=== PATIENT | female | born 1980 | race Caucasian/White ===

== ENCOUNTER 2018-11-29 11:51 | Emergency (ER) | payer SELFPAY ==
[2018-11-29 12:10] VITALS: BP 122/85; PULSE 96; TEMP 98.6; BMI 27.6
--- NOTE | 2018-11-29 12:39 | PDOC ---
History of Present Illness - General Chief Complaint: Ear Problem Stated Complaint: RT EAR PAIN/ FEVER Time Seen by Provider: 11/29/18 12:10 History Source: Patient Exam Limitations: Language Barrier ( translates, refuses [employer]) Past History - Travel Traveled outside of the country in the last 30 days: No Close contact w/someone who was outside of country & ill: No - Past Medical History Allergies/Adverse Reactions: Allergies Allergy/AdvReac Type Severity Reaction Status Date / Time No Known Allergies Allergy Verified 11/29/18 12:10 Home Medications: Ambulatory Orders Amoxicillin - [Amoxicillin 500mg Capsule -] 500 mg PO BID #14 capsule 11/29/18 Neomycin/Polymyxn/Hc [Cortisporin Otic Solution -] 5 drop AD Q6HPO #1 bottle - Suicide/Smoking/Psychosocial Hx Smoking History: Never smoked Have you smoked in the past 12 months: No Information on smoking cessation initiated: No Hx Alcohol Use: No Drug/Substance Use Hx: No Review of Systems - Review of Systems Able to Perform ROS?: Yes Comments:: 11/29/18 12:31 CONSTITUTIONAL: Absent: fever, chills, diaphoresis, generalized weakness, malaise, loss of appetite HEENT: Present: R ear pain, hearing changes Absent: rhinorrhea, nasal congestion, throat pain, throat swelling, difficulty swallowing, mouth swelling, eye pain, visual Changes CARDIOVASCULAR: Absent: chest pain, loss of consciousness, palpitations, irregular heart rate, peripheral edema RESPIRATORY: Absent: cough, shortness of breath, dyspnea with exertion, orthopnea, wheezing, stridor, hemoptysis MUSCULOSKELETAL: Absent: myalgia, arthralgia, joint swelling SKIN: Absent: rash, itching, pallor NEUROLOGIC: Absent: headache, focal weakness or paresthesias, dizziness, unsteady gait, seizure, mental status changes, bladder or bowel incontinence Is the patient limited Afghan proficient: No *Physical Exam - Vital Signs Last Vital Signs Temp Pulse Resp BP Pulse Ox 98.6 F 96 H 18 122/85 98 11/29/18 12:07 11/29/18 12:07 11/29/18 12:07 11/29/18 12:07 11/29/18 12:07 - Physical Exam Comments: 11/29/18 12:32 GENERAL: The patient is awake, alert, and fully oriented, in no acute distress. HEAD: Normal with no signs of trauma. EYES: Pupils equal, round and reactive to light, extraocular movements intact, sclera anicteric, conjunctiva clear. EARS: R ear canal is edematous with otorrhea. unable to visualize the TM. L ear canal is clear, TM pearly sosa in color, good cone of light, no bulging. EXTREMITIES: Normal range of motion, no edema. NEUROLOGICAL: Normal speech, normal gait. PSYCH: Normal mood, normal affect. SKIN: Warm, Dry, normal turgor, no rashes or lesions noted. Medical Decision Making - Medical Decision Making 11/29/18 12:46 The patient is a 38-year-old female who presents to the emergency department today with right ear pain for the last 4 days. She states she has tried over- the-counter eardrops with little relief of her symptoms. She states that it is hard to hear and she feels like everything is far away. denies fevers, chills, lightheadedness, dizziness, sore throat. A/P: Otitis externa The right ear canal appears erythematous with significant otorrhea. Unable to visualize the right TM. We will treat as otitis externa. Patient states she is currently having a miscarriage, medication will not interfere. Discharge home with ENT follow-up. I discussed the physical exam findings, ancillary test results and final diagnoses with the patient. I answered all of the patient's questions. The patient was satisfied with the care received and felt comfortable with the discharge plan and treatment plan. The Patient agrees to follow up with the primary care physician/specialist within 24-72 hours. Return precautions were given. *DC/Admit/Observation/Transfer Diagnosis at time of Disposition: Otitis externa Qualifiers: Otitis externa type: unspecified type Chronicity: acute Laterality: right Qualified Code(s): H60.501 - Unspecified acute noninfective otitis externa, right ear - Discharge Dispostion Disposition: HOME Condition at time of disposition: Stable Decision to Admit order: No - Prescriptions Prescriptions: Amoxicillin - [Amoxicillin 500mg Capsule -] 500 mg PO BID #14 capsule Neomycin/Polymyxn/Hc [Cortisporin Otic Solution -] 5 drop AD Q6HPO #1 bottle - Referrals Referrals: Darnell Haider MD [Staff Physician] - - Patient Instructions Printed Discharge Instructions: DI for Otitis Externa Additional Instructions: you have otitis externa or infection of the ear canal. Please use the eardrops as directed. Take the amoxicillin twice a day for 1 week. Take this with yogurt. Avoid putting anything in the ear keep it dry when showering. Follow-up with ENT if your symptoms should persist. A referral has been provided for you. Return to the ER for any new or worsening symptoms. Department of social worker psychiatric: [facility] Address: [address], [place] [address] - Post Discharge Activity
== END 2018-11-29 12:47 | disposition home or self-care (01) ==
LOC: JERFT 11:51
DX: H60.501 Unspecified acute noninfective otitis externa, right ear (principal)
CPT/HCPCS: 99281-25

== ENCOUNTER 2020-04-14 14:30 | Inpatient (IN) | payer BC ==
[2020-04-14 15:01] VITALS: BMI 33.3
[2020-04-14 16:35] LABS: BASO % 0.4 % (0-2.0); EOS % 0.8 % (0-4.5); HEMATOCRIT 35.9 % (32.4-45.2); HEMOGLOBIN 12.2 GM/dL (10.7-15.3); LYMPH % 21.7 % (8-40); MCH 27.7 pg (25.7-33.7); MCHC 33.9 g/dl (32.0-36.0); MEAN CELL VOLUME 81.5 fl (80-96); MEAN PLT VOLUME 8.5 fl (7.5-11.1); MONO % 8.9 % (3.8-10.2); NEUT % 68.2 % (42.8-82.8); PLATELET COUNT 243 K/MM3 (134-434); RBC 4.41 M/mm3 (3.60-5.2); RDW 14.5 % (11.6-15.6); WHITE BLOOD COUNT 6.9 K/mm3 (4.0-10.0)
[2020-04-14 16:47] LABS: INR 0.85 (0.83-1.09)
[2020-04-14 16:49] LABS: ACTIVATED PTT 22.6 SECONDS (25.2-36.5)
[2020-04-14 17:02] LABS: CALCIUM 9.2 mg/dL (8.5-10.1); CREATININE 0.5 mg/dL (0.55-1.3); POTASSIUM 4.6 mmol/L (3.5-5.1)
[2020-04-14] MEDS ORDERED: ELECTROLYTE-148 SOLN 1,000 ML IV SCH (17:15)
[2020-04-14] MEDS ORDERED: OXYTOCIN 20 UNITS in 0.9% NS 20 UNIT/1,000 ML INFUS.BAG IV ONE (17:20)
--- NOTE | 2020-04-14 17:29 | HP ---
Past Medical History - Primary Care Physician PCP:: Isiah Adams - Admission Chief Complaint: 40 yo @ 38.3 wks c/o decreased FM and pain on/off. 4 cm, 80% History of Present Illness: 40 yo @ 38.3 weeks AMA GDM on diet well controlled Obesity LGA Bilateral clinodactyly and echogenic foci - NIPS : low risk, declined amniocentesis H/O SABX 1 Last sono 04/06/2020 - 86 % 3691 gm, BPD >97%, AC 94%; grade 3 placenta History Source: Patient Limitations to Obtaining History: No Limitations - Past Medical History ...: 2 ...Para: 0 ...Spon : 1 ...LMP: 07/20/19 ... Weeks Gestation by Dates: 38.4 ...EDC by Dates: 04/25/20 ...EDC by Sono: 04/25/20 - Past Surgical History Past Surgical History: Yes: None Hx Myomectomy: No Hx Transabdominal Cerclage: No - Smoking History Smoking history: Never smoked Have you smoked in the past 12 months: No - Alcohol/Substance Use Hx Alcohol Use: No History of Substance Use: reports: None - Social History Usual Living Arrangement: Yes: With Spouse Do you think of yourself as: Straight/Heterosexual ADL: Independent History of Recent Travel: No Home Medications - Allergies Allergies/Adverse Reactions: Allergies Allergy/AdvReac Type Severity Reaction Status Date / Time No Known Allergies Allergy Verified 11/29/18 12:10 - Home Medications Home Medications: Ambulatory Orders Amoxicillin - [Amoxicillin 500mg Capsule -] 500 mg PO BID #14 capsule 11/29/18 Neomycin/Polymyxn/Hc [Cortisporin Otic Solution -] 5 drop AD Q6HPO #1 bottle 11/29/18 Family Medical History Family Hx Gastrointestinal Disorder: Father Review of Systems - Review of Systems Constitutional: reports: No Symptoms Eyes: reports: No Symptoms HENT: reports: No Symptoms Neck: reports: No Symptoms Cardiovascular: reports: No Symptoms Respiratory: reports: No Symptoms Gastrointestinal: reports: No Symptoms Genitourinary: reports: No Symptoms, Pain Breasts: reports: No Symptoms Reported Musculoskeletal: reports: No Symptoms Integumentary: reports: No Symptoms Neurological: reports: No Symptoms Endocrine: reports: No Symptoms Hematology/Lymphatic: reports: No Symptoms Psychiatric: reports: No Symptoms Physical Exam - Maternity Constitutional: Yes: Well Nourished, No Distress Eyes: Yes: WNL HENT: Yes: WNL Neck: Yes: WNL Cardiovascular: Yes: WNL Lungs: Clear to auscultation Breast(s): Yes: WNL - Abdominal Exam/OB Fundal Height: 42 Number of Fetuses: Single Presentation: Vertex Contractions: Yes Regularity: Irregular Intensity: Mild Monitor Mode: External Heart Rate [facility] Category: I Accelerations: Uniform Decelerations: None - Vaginal Exam/OB Vaginal Bleeding: No Dilatation (cm): 4 Effacement (%): 80 Amniotic Membrane Status: Intact Presentation: Vertex/Position Station: -1 - Physical Exam Musculoskeletal: Yes: WNL Extremities: Yes: WNL Edema: LLE: 2+, RLE: 2+ Deep Tendon Reflex Grade: Normal +2 Psychiatric: Yes: WNL - Labs Lab Results: CBC, BMP 04/14/20 15:30 04/14/20 15:30 Hemorrhage Risk Assessment - Risk Factors Risk Score: 2 Risk Level: High Risk Problem List - Problems (1) Gestational diabetes mellitus (GDM) in childbirth, diet controlled Code(s): O24.420 - GESTATIONAL DIABETES MELLITUS IN CHILDBIRTH, DIET CONTROLLED (2) 38 weeks gestation of Code(s): Z3A.38 - 38 WEEKS GESTATION OF (3) AMA (advanced maternal age) multigravida 35+ Code(s): O09.529 - SUPERVISION OF ELDERLY MULTIGRAVIDA, UNSPECIFIED TRIMESTER (4) Obesity Code(s): E66.9 - OBESITY, UNSPECIFIED Assessment/Plan Admit to LD Pitocin augmentation LISA
[2020-04-14] MEDS ORDERED: OXYTOCIN 30 UNITS in 0.9% NS 30 UNIT/500 ML INFUS.BAG IVPB SCH (17:30)
--- OUTSIDE RECORDS SUMMARY | 2020-04-14 20:45 | XMS ---
:1980 Author Organization [facility] Care Team Providers Name Role Phone MD Isiah Loomis Unavailable Unavailable Re-disclosure Warning The records that you are about to access may contain information from federally- assisted alcohol or drug abuse programs. If such information is present, then the following federally mandated warning applies: This information has been disclosed to you from records protected by federal confidentiality rules (42 CFR part 2). The federal rules prohibit you from making any further disclosure of this information unless further disclosure is expressly permitted by the written consent of the person to whom it pertains or as otherwise permitted by 42 CFR part 2. A general authorization for the release of medical or other information is NOT sufficient for this purpose. The Federal rules restrict any use of the information to criminally investigate or prosecute any alcohol or drug abuse patient.The records that you are about to access may contain highly sensitive health information, the redisclosure of which is protected by Article 27-F of the [facility] Public Health law. If you continue you may haveaccess to information: Regarding HIV / AIDS; Provided by facilities licensed or operated by the [facility] Office of Mental Health; or Provided by the [facility] Office for People With Developmental Disabilities. If such information is present, then the following [facility] mandated warning applies: This information has been disclosed to you from confidential records which are protected by state law. State law prohibits you from making any further disclosure of this information without the specific written consent of the person to whom it pertains, or as otherwise permitted by law. Any unauthorized further disclosure in violation of state law may result in a fine or retirement sentence or both. A general authorization for the release of medical or other information is NOT sufficient authorization for further disclosure. Encounters Encounter Providers Location Date Indications Data Source(s ) Outpatient Attender: ICU[facility] 04/05/2020 [facility] 04[facility]05[facility] 11:59:00 PM EDT Patient discharged. Outpatient Attender: MD Joyce ICU-[facility]TE PAR 04/02/2020 11:58:05 [facility] AM EDT - 04/06/2020 [facility] 11:59:00 PM EDT Patient discharged. Outpatient Attender: MD Joyce [facility] 03/24/2020 03:21:00 [facility] [place] PM EDT - 03/24/2020 [facility] 11:59:00 PM EDT Patient discharged. Outpatient Attender: MD Joyce [facility] 03/17/2020 11:28:00 [facility] [place] PM EDT - 03/17/2020 [facility] 11:59:00 PM EDT Patient discharged. Outpatient Attender: MD Joyce [facility] 03/10/2020 10:41:00 [facility] [place] AM EDT - 03/10/2020 [facility] 11:59:00 PM EDT Patient discharged. Outpatient Attender: MD Joyce [facility] 03/03/2020 03:25:00 [facility] [place] PM EDT - 03/03/2020 [facility] 11:59:00 PM EDT Patient discharged. Outpatient Attender: MD Joyce ICU-ANTE PAR 02/26/2020 09:22:29 [facility] AM EDT - 02/29/2020 [facility] 11:59:00 PM EDT Patient discharged. Outpatient Attender: MD Joyce [facility] 02/24/2020 07:52:00 [facility] [place] AM EDT - 02/24/2020 [facility] 11:59:00 PM EDT Patient discharged. Outpatient Attender: MD Joyce [facility] 02/18/2020 04:20:00 [facility] [place] PM EDT - 02/18/2020 [facility] 11:59:00 PM EDT Patient discharged. Outpatient Attender: MD Joyce ICU-ANTE PAR 12/18/2019 02:08:39 [facility] PM EDT - 12/21/2019 [facility] 11:59:00 PM EDT Patient discharged. Outpatient Attender: MD Joyce ICU-MATTRI 12/10/2019 09:31:00 [facility] AM EDT - 12/10/2019 [facility] 11:59:00 PM EDT Patient discharged. Outpatient Attender: MD Joyce ICU-ANTE PAR 10/16/2019 01:30:00 [facility] PM EDT - 10/16/2019 [facility] 11:59:00 PM EDT Patient discharged. Outpatient Attender: MD Joyce ICU-[facility]TE PAR 10/15/2019 03:36:00 [facility] PM EDT - 10/15/2019 [facility] 11:59:00 PM EDT Admission cancelled. Disregard status an d admitted date. Insurance Providers Payer name Policy type Policy ID Covered Covered republican's Policy P geri / Coverage republican ID relationship to Garcia Inf ormation type garcia OUT OF [id number] STATE 10 PPO [id number] Blue Cross Blue Cross [id number] PPO 10 Blue Cross Blue Cross [id number] PPO 10 SELF PAY SP INSURANCE Problems, Conditions, and Diagnoses Code Display Name Description Problem Type Effective Data Dates Source(s) O09.523 Supervision of Encounter for Diagnosis 04/06/2020 [facility] - N ew elderly supervision of 08:04:00 AM [facility] multigravida, multigravida of EDT Hospit al third trimester advanced maternal age in third trimester, antepartum O99.213 Obesity Maternal morbid Diagnosis 04/06/2020 S - New complicating obesity in third 08:04:00 AM Psychiatric , third trimester, EDT Hospital trimester antepartum O35.8XX0 Maternal care for Abnormal Diagnosis 04/06/2020 S - New other (suspected) echocardiogram 08:04:00 AM [place] abnormality affecting EDT Hospita l and damage, not antepartum care of applicable or mother, not unspecified applicable or unspecified fet O36.0110 Maternal care for Anti-D antibodies Diagnosis 04/06/2020 [facility] - 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:04:00 AM [facility] antibodies, first in first EDT Hospital trimester, not trimester, not applicable or applicable or unspecified unspecified fetus O24.410 Gestational Diet controlled Diagnosis 04/05/2020 [facility] - [facility] w diabetes mellitus gestational 03:49:00 PM [place] in , diet diabetes mellitus EDT Hospital controlled (GDM) 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 [facility] - New malformations of 09:28:00 [facility] O36.93X0 Maternal care for and placental Diagnosis 0 [facility] - New problem, problem affecting 09:28:00 AM [place] unspecified, third management of EDT Hos pital trimester, not mother in third applicable or trimester unspecified Z3A.22 22 weeks gestation 22 weeks gestation Diagnosis 0 [facility] - New of of 01:27:00 PM [facility] O09.522 Supervision of Encounter for Diagnosis 12/10/2019 [facility] - N ew elderly supervision of 09:31:00 AM [facility] multigravida, multigravida of EDT Hospit al second trimester advanced maternal age in second trimester, antepartum O99.212 Obesity Maternal morbid Diagnosis 12/10/2019 [facility] - New complicating obesity in second 09:31:00 AM Yobany suazo , second trimester, EDT Hospita l trimester antepartum O09.521 Supervision of Encounter for Diagnosis 10/16/2019 [facility] - N ew elderly supervision of 01:30:00 PM [facility] multigravida, multigravida of EDT Hospit al first trimester advanced maternal age in first trimester, antepartum O99.211 Obesity Maternal morbid Diagnosis 10/16/2019 [facility] - New complicating obesity in first 01:30:00 PM [place] , first trimester, EDT Hospital trimester antepartum
--- NOTE | 2020-04-14 22:09 | PN ---
Progress Note (short form) - Note Progress Note: Pt is comfortable VSS, afebrile FS 78 EFM 130 bpm, reactive, cat 1 TOCO Irreg UC VE -4-5 cm, 80%, -1 vtx. AROM - clear fluid IFM applied A/P pain meds discussed Pitocin augmentation Problem List - Problems (1) Gestational diabetes mellitus (GDM) in childbirth, diet controlled Code(s): O24.420 - GESTATIONAL DIABETES MELLITUS IN CHILDBIRTH, DIET CONTROLLED (2) 38 weeks gestation of Code(s): Z3A.38 - 38 WEEKS GESTATION OF (3) AMA (advanced maternal age) multigravida 35+ Code(s): O09.529 - SUPERVISION OF ELDERLY MULTIGRAVIDA, UNSPECIFIED TRIMESTER (4) Obesity Code(s): E66.9 - OBESITY, UNSPECIFIED
--- NOTE | 2020-04-14 23:06 | PN ---
Progress Note (short form) - Note Progress Note: Pt c/o painful UC and requesting epidural VSS, afebrile FS 78 IFM 130 bpm, reactive, cat 1 TOCO reg UC q 3 min VE -5 cm, 90%, -1 vtx. leaking clear fluid A/P Epidural anesthesia Pitocin augmentation Close observation Problem List - Problems (1) Gestational diabetes mellitus (GDM) in childbirth, diet controlled Code(s): O24.420 - GESTATIONAL DIABETES MELLITUS IN CHILDBIRTH, DIET CONTROLLED (2) 38 weeks gestation of Code(s): Z3A.38 - 38 WEEKS GESTATION OF (3) AMA (advanced maternal age) multigravida 35+ Code(s): O09.529 - SUPERVISION OF ELDERLY MULTIGRAVIDA, UNSPECIFIED TRIMESTER (4) Obesity Code(s): E66.9 - OBESITY, UNSPECIFIED
[2020-04-14] MEDS ORDERED: FENTANYL/BUPIVACAINE/NS/PF - PCEA - 50 ML DISP.SYRIN EP ONE (23:08)
[2020-04-14] MEDS ORDERED: PCA PUMP NR ONE (23:09)
[2020-04-14] MEDS ORDERED: FENTANYL/BUPIVACAINE/NS/PF - PCEA - 50 ML DISP.SYRIN EP SCH (23:45)
[2020-04-14] MEDS ORDERED: NALOXONE HCL 0.4 MG/ML VIAL IVPUSH PRN (23:46)
--- NOTE | 2020-04-15 01:07 | PN ---
Progress Note (short form) - Note Progress Note: Pt has no c/o after epidural VSS, afebrile FS 78 IFM 130 bpm, reactive, cat 1 TOCO reg UC q 3 min VE -8 cm, 90%, [address] st vtx. leaking clear fluid A/P Pitocin augmentation Close observation Problem List - Problems (1) Gestational diabetes mellitus (GDM) in childbirth, diet controlled Code(s): O24.420 - GESTATIONAL DIABETES MELLITUS IN CHILDBIRTH, DIET CONTROLLED (2) 38 weeks gestation of Code(s): Z3A.38 - 38 WEEKS GESTATION OF (3) AMA (advanced maternal age) multigravida 35+ Code(s): O09.529 - SUPERVISION OF ELDERLY MULTIGRAVIDA, UNSPECIFIED TRIMESTER (4) Obesity Code(s): E66.9 - OBESITY, UNSPECIFIED
[2020-04-15] MEDS ORDERED: DEXTROSE 5%-LACTATED RINGERS 1,000 ML IV SCH (01:15)
[2020-04-15] MEDS ORDERED: LIDOCAINE HCL 1% PRESERVATIVE FREE - 30ML VIAL ONE (01:44)
[2020-04-15] MEDS ORDERED: OXYTOCIN 20 UNITS in 0.9% NS 20 UNIT/1,000 ML INFUS.BAG IV ONE ×2 (01:44→06:26)
--- NOTE | 2020-04-15 03:05 | PN ---
Progress Note (short form) - Note Progress Note: Pt c/o pelvic pressure VSS, afebrile FS 78 IFM 130 bpm, reactive, cat 1 TOCO reg UC q 2 min VE 10 cm, 90%, 0 st vtx. A/P Close observation May push Problem List - Problems (1) Gestational diabetes mellitus (GDM) in childbirth, diet controlled Code(s): O24.420 - GESTATIONAL DIABETES MELLITUS IN CHILDBIRTH, DIET CONTROLLED (2) 38 weeks gestation of Code(s): Z3A.38 - 38 WEEKS GESTATION OF (3) AMA (advanced maternal age) multigravida 35+ Code(s): O09.529 - SUPERVISION OF ELDERLY MULTIGRAVIDA, UNSPECIFIED TRIMESTER (4) Obesity Code(s): E66.9 - OBESITY, UNSPECIFIED
[2020-04-15] MEDS ORDERED: OXYTOCIN 30 UNITS in 0.9% NS 30 UNIT/500 ML INFUS.BAG IVPB ONE (04:35)
[2020-04-15] MEDS ORDERED: PCA PUMP NR ONE (04:52)
[2020-04-15] MEDS ORDERED: LIDO 2%/EPI 1:200000 PRESRVFRE (20 ML SDVIAL) ONE (05:04)
[2020-04-15] MEDS ORDERED: EPHEDRINE SULFATE/0.9% NACL/PF 50 MG/10 ML SYRINGE NR ONE (05:28)
[2020-04-15] MEDS ORDERED: PROPOFOL 20 ML ONE (05:28)
[2020-04-15] MEDS ORDERED: SUCCINYLCHOLINE CHLORIDE 200 MG/10 ML SYRINGE ONE (05:29)
[2020-04-15] MEDS ORDERED: morphine SULFATE/PF 0.5 MG/ML (2cc Syringe - QUVA) ONE ×2 (05:48→05:49)
[2020-04-15] MEDS ORDERED: METHYLERGONOVINE MALEATE 0.2 MG/1 ML AMP IM PRN (06:20)
--- NOTE | 2020-04-15 06:20 | PN ---
Progress Note (short form) - Note Progress Note: Pt c/o pelvic pressure, declined to push, desires CS VSS, afebrile FS 78 IFM 130 bpm, reactive, cat 1 TOCO reg UC q 2 min VE 10 cm, 90%, +1 st vtx. A/P Arrest of descent Risks, benefits alternatives discussed ; pt opted cs All questions answered Problem List - Problems (1) Gestational diabetes mellitus (GDM) in childbirth, diet controlled Code(s): O24.420 - GESTATIONAL DIABETES MELLITUS IN CHILDBIRTH, DIET CONTROLLED (2) 38 weeks gestation of Code(s): Z3A.38 - 38 WEEKS GESTATION OF (3) AMA (advanced maternal age) multigravida 35+ Code(s): O09.529 - SUPERVISION OF ELDERLY MULTIGRAVIDA, UNSPECIFIED TRIMESTER (4) Obesity Code(s): E66.9 - OBESITY, UNSPECIFIED
[2020-04-15] MEDS ORDERED: ACETAMINOPHEN 1000 MG/100 ML VIAL (NON FORMULARY) IVPB PRN (06:26)
--- NOTE | 2020-04-15 06:30 | OP ---
Operative Note - Note: Operative Date: 04/15/20 Pre-Operative Diagnosis: 40 yo @ 38 + weeks, GDM on diet, Obesity. Arrest of descent Operation: LTCS via Pfannenstiel incision Findings: Baby boy born 03/23 8.10 lbs Surgeon: Isiah Adams Micromatic Hone Operator: Rene Vázquez Anesthesiologist/SOLAR SALES SPECIALIST: James Ovalles Anesthesia: Epidural Specimens Removed: Cord gases and blood, placenta and memb Estimated Blood Loss (mls): 800
[2020-04-15] MEDS: IBUPROFEN 800 MG/8 ML IJ IVPB PRN ×2 (10:00→18:00)
[2020-04-15] MEDS: ENOXAPARIN NA (PORCINE) 40 MG/0.4 ML DISP.SYRIN SQ SCH (10:09)
[2020-04-15] MEDS: CEFAZOLIN 1 GM/D5W 1 GM/50 ML BAG IVPB SCH ×2 (10:50→17:12)
[2020-04-16] MEDS: ACETAMINOPHEN 325 MG TABLET (FP) PO PRN ×4 (02:34→20:48)
[2020-04-16] MEDS: oxyCODONE HCL 5 MG TABLET PO PRN ×4 (02:34→20:47)
[2020-04-16] MEDS: SIMETHICONE 80 MG TAB.CHEW (FP) PO PRN ×2 (02:35→15:28)
[2020-04-16] MEDS: CEFAZOLIN 1 GM/D5W 1 GM/50 ML BAG IVPB SCH (02:55)
[2020-04-16] MEDS ORDERED: BISACODYL 10 MG SUPP.RECT RC PRN (06:20)
[2020-04-16] MEDS: ENOXAPARIN NA (PORCINE) 40 MG/0.4 ML DISP.SYRIN SQ SCH (09:17)
[2020-04-16 09:32] LABS: BASO % 0.4 % (0-2.0); EOS % 0.7 % (0-4.5); HEMATOCRIT 32.1 % (32.4-45.2); HEMOGLOBIN 10.5 GM/dL (10.7-15.3); LYMPH % 14.6 % (8-40); MCH 26.6 pg (25.7-33.7); MCHC 32.6 g/dl (32.0-36.0); MEAN CELL VOLUME 81.7 fl (80-96); MEAN PLT VOLUME 8.1 fl (7.5-11.1); MONO % 6.1 % (3.8-10.2); NEUT % 78.2 % (42.8-82.8); PLATELET COUNT 215 K/MM3 (134-434); RBC 3.93 M/mm3 (3.60-5.2); RDW 14.7 % (11.6-15.6); WHITE BLOOD COUNT 8.8 K/mm3 (4.0-10.0)
--- NOTE | 2020-04-16 09:46 | PN ---
Progress Note (short form) - Note Progress Note: asked by PMD to see this pt this am pod 1 pt. without complaints. +flatus. tolerating diet. OOB vss - af abd: soft, nt, nd, fundus firm. +BS inc. c/d/i ve: min lochia a/p pod 1 s/p csection pt. stable check cbc today oob as walter advance diet as walter further mgmt per Dr. Adams
[2020-04-17] MEDS: SIMETHICONE 80 MG TAB.CHEW (FP) PO PRN ×3 (05:13→19:03)
[2020-04-17] MEDS: oxyCODONE HCL 5 MG TABLET PO PRN ×3 (05:13→19:03)
[2020-04-17] MEDS: IBUPROFEN 600 MG TABLET (FP) PO PRN ×3 (05:14→19:04)
[2020-04-17] MEDS: ENOXAPARIN NA (PORCINE) 40 MG/0.4 ML DISP.SYRIN SQ SCH (09:31)
--- NOTE | 2020-04-17 11:45 | PN ---
Post Progress Note - Subjective Subjective: Pt c/o incisional pain, happy Post Day: 2 Type of Delivery: Primary C/S Vital Signs: Vital Signs Temperature 98.0 F 04/17/20 10:00 Pulse Rate 90 04/17/20 10:00 Respiratory Rate 18 04/17/20 10:00 Blood Pressure 121/67 04/17/20 10:00 O2 Sat by Pulse Oximetry (%) 99 04/16/20 21:30 Breast Exam: Yes: Soft Uterus: Yes: Fundus Firm, Fundus below umbilicus Incision: Yes: Dressing dry and intact Abdomen/GI: Yes: Abdomen soft, Tolerating PO Lochia: Yes: Rubra Lochia, amount: Small Extremities: Yes: Calves non-tender Perineum: Yes: Intact - Labs Labs: CBC WBC 8.8 K/mm3 (4.0-10.0) 04/16/20 09:15 RBC 3.93 M/mm3 (3.60-5.2) 04/16/20 09:15 Hgb 10.5 GM/dL (10.7-15.3) L 04/16/20 09:15 Hct 32.1 % (32.4-45.2) L 04/16/20 09:15 MCV 81.7 fl (80-96) 04/16/20 09:15 MCH 26.6 pg (25.7-33.7) 04/16/20 09:15 MCHC 32.6 g/dl (32.0-36.0) 04/16/20 09:15 RDW 14.7 % (11.6-15.6) 04/16/20 09:15 Plt Count 215 K/MM3 (134-434) 04/16/20 09:15 MPV 8.1 fl (7.5-11.1) 04/16/20 09:15 Absolute Neuts (auto) 6.9 K/mm3 (1.5-8.0) 04/16/20 09:15 Neutrophils % 78.2 % (42.8-82.8) 04/16/20 09:15 Lymphocytes % 14.6 % (8-40) D 04/16/20 09:15 Monocytes % 6.1 % (3.8-10.2) 04/16/20 09:15 Eosinophils % 0.7 % (0-4.5) 04/16/20 09:15 Basophils % 0.4 % (0-2.0) 04/16/20 09:15 Nucleated RBC % 0 % (0-0) 04/16/20 09:15 Problem List - Problems (1) Gestational diabetes mellitus (GDM) in childbirth, diet controlled Code(s): O24.420 - GESTATIONAL DIABETES MELLITUS IN CHILDBIRTH, DIET CONTROLLED (2) 38 weeks gestation of Code(s): Z3A.38 - 38 WEEKS GESTATION OF (3) AMA (advanced maternal age) multigravida 35+ Code(s): O09.529 - SUPERVISION OF ELDERLY MULTIGRAVIDA, UNSPECIFIED TRIMESTER (4) Obesity Code(s): E66.9 - OBESITY, UNSPECIFIED Qualifiers: Body mass index: BMI 38.0-38.9 (5) delivery delivered Code(s): O82 - ENCOUNTER FOR DELIVERY WITHOUT INDICATION Assessment/Plan Ambulating shower remove dressing
[2020-04-18 01:12] VITALS: BP 114/67; PULSE 88; TEMP 98.4
[2020-04-18] MEDS: SIMETHICONE 80 MG TAB.CHEW (FP) PO PRN (06:04)
[2020-04-18] MEDS: IBUPROFEN 600 MG TABLET (FP) PO PRN ×2 (06:05→12:05)
[2020-04-18] MEDS: oxyCODONE HCL 5 MG TABLET PO PRN (06:05)
--- NOTE | 2020-04-18 07:07 | DS ---
Physical Exam-DIRECTOR OF REHABILITATION AND WELLNESS Vital Signs: Vital Signs Temperature 98.4 F 04/17/20 22:00 Pulse Rate 88 04/17/20 22:00 Respiratory Rate 18 04/17/20 22:00 Blood Pressure 114/67 04/17/20 22:00 O2 Sat by Pulse Oximetry (%) 99 04/16/20 21:30 Constitutional: Yes: Well Nourished, No Distress Eyes: Yes: WNL HENT: Yes: WNL Neck: Yes: WNL Cardiovascular: Yes: WNL Respiratory: Yes: WNL Gastrointestinal: Yes: WNL ....Post : Yes: Uterus firm, Slight lochia rubra Breast(s): Yes: WNL Musculoskeletal: Yes: WNL Extremities: Yes: WNL Edema: Yes Edema: LLE: Trace, RLE: Trace Integumentary: Yes: WNL Wound/Incision: Yes: Clean/Dry, Well Approximated, Sutures Intact Neurological: Yes: WNL ...Motor Strength: WNL Labs: CBC, BMP 04/16/20 09:15 04/14/20 15:30 Delivery - Delivery Section: Primary Type of Anesthesia: Epidural EBL (cc): 800 Delivery, Single - Stages of Labor Date 1st Stage Initiatied: 04/15/20 Time 1st Stage Initiated: 03:00 Date of Delivery: 04/15/20 Time of Delivery: 05:35 Time Placenta Delivered: 05:36 Placenta: Yes: Spontaneous - Condition of Infant Ham Stripper/Continuous Vulcanizing Machine Operator Present: Yes Name: Naty Jensen Gender: Male Weight: 3.912 kg Position: Left, OA Total Hours ROM (Hrs/Mins): 7 HOURS/ 40MIUTES - 1 Minute Total Score: 9 5 Minutes Total Score: 9 - [place] Feeding Plan Initial Plan: Elected not to breastfeed exclusively throughout hospitalization Discharge Summary Problems reviewed: Yes Reason For Visit: INDUCTION OF LABOR Current Active Problems 38 weeks gestation of (Acute) AMA (advanced maternal age) multigravida 35+ (Acute) delivery delivered (Acute) Gestational diabetes mellitus (GDM) in childbirth, diet controlled (Acute) Obesity (Acute) Procedures: Principal: primary c/s Hospital Course: good Plan of Treatment: keep the incision dry - Instructions Diet, Activity, Other Instructions: regular Activity as tolerated Disposition: HOME - Home Medications Comprehensive Discharge Medication List: Ambulatory Orders Amoxicillin - [Amoxicillin 500mg Capsule -] 500 mg PO BID #14 capsule 11/29/18 Neomycin/Polymyxn/Hc [Cortisporin Otic Solution -] 5 drop AD Q6HPO #1 bottle 11/29/18 Ibuprofen 600 mg PO Q6H PRN #30 tablet 04/17/20
[2020-04-18 08:07] LABS: BASO % 0.4 % (0-2.0); EOS % 3.7 % (0-4.5); HEMOGLOBIN 11.2 GM/dL (10.7-15.3); MCH 26.8 pg (25.7-33.7); MCHC 32.9 g/dl (32.0-36.0); MEAN CELL VOLUME 81.4 fl (80-96); MONO % 5.8 % (3.8-10.2); NEUT % 64.1 % (42.8-82.8); PLATELET COUNT 282 K/MM3 (134-434); RBC 4.18 M/mm3 (3.60-5.2); RDW 14.7 % (11.6-15.6)
[2020-04-18] MEDS: ENOXAPARIN NA (PORCINE) 40 MG/0.4 ML DISP.SYRIN SQ SCH (10:00)
[2020-04-18] MEDS: ACETAMINOPHEN 325 MG TABLET (FP) PO PRN (12:06)
--- NOTE | 2020-04-18 18:54 | PATH ---
Surgical Pathology Report Patient Name: ANIBAL LOOMIS Med. Rec. 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 Specimen(s) Received PLACENTA Clinical History 40-year-old , 1 spon ab, GDM-diet controlled, primary Final Diagnosis PLACENTA, SECTION: 707 G THIRD TRIMESTER PLACENTA WITH TRIVASCULAR UMBILICAL CORD, FOCAL INTRAPARENCHYMAL HEMORRHAGE (~10% OF PLACENTAL SURFACE), AND UNREMARKABLE PLACENTAL MEMBRANES. Electronically Signed Miriam Thakkar M.D. Gross Description The specimen is received fresh labeled placenta and is a 707 gram, 21.0 x 17.5 x 2.4 cm. placenta with attached membranes and umbilical cord. The attached membranes are brink, translucent with focal opacities and insert marginally. The umbilical cord measures 15 cm. in length and averages 1.1 cm. in diameter. The cord inserts eccentrically, 4.5 cm. to the nearest margin. No true knots or strictures are identified. Cut surface of the umbilical cord reveals 3 vessels. The surface is sosa-blue with minimal fibrin deposition and appropriate caliber vessels. The maternal surface is red-brown with focal defects. Sectioning reveals a 2.0 cm in greatest dimension hemorrhagic focus. The remaining placental parenchyma is red-brown and spongy. Cloth Finishing Range Back Tender sections are submitted in three cassettes as follows: 1-membrane roll and umbilical cord; 2-hemorrhagic focus; 3-full thickness section of placenta. DL/04/15/2020 saudi/04/15/2020
--- NOTE | 2020-04-21 18:52 | OP ---
DATE OF OPERATION: 04/15/2020 PREOPERATIVE DIAGNOSIS: 40-year-old G2, para 0-0-1-0 at 38 plus weeks, gestational diabetes mellitus on diet, obesity, arrest of descent. POSTOPERATIVE DIAGNOSIS: 40-year-old G2, para 0-0-1-0 at 38 plus weeks, gestational diabetes mellitus on diet, obesity, arrest of descent. OPERATION: Lower transverse section via Pfannenstiel incision. SURGEON: Isiah Loomis MD. PATTERN CHAIN BUILDER: LAXMI Wayne. ANESTHESIOLOGIST: ANESTHESIA: Epidural. ESTIMATED BLOOD LOSS: 800 mL. FLUID: 1500 mL lactated Ringer's. URINE OUTPUT: 200 mL clear urine at the end of the procedure. FINDINGS: Baby boy born weighted 8.10 pounds, Apgars 9 and 9. Cord gases and cord blood collected. DESCRIPTION OF PROCEDURE: The patient was taken to the operating room where epidural anesthesia was found to be adequate. She was then prepped and draped in the usual sterile fashion in dorsal supine position with the leftward tilt. A Pfannenstiel skin incision was made with the scalpel and carried through to the underlying layer of fascia with the Bovie. The fascia was incised in the midline, and the incision was extended laterally with Hu scissors. The superior and inferior aspect of fascial incision was grasped with Francisco clamps, elevated, and the underlying rectus muscles were dissected off bluntly. Attention was then turned to the rectus muscles, which were in the midline. The peritoneum identified, tented up, and entered sharply with Metzenbaum scissors. The peritoneal incision was then extended superiorly and inferiorly with good visualization of the bladder. The bladder blade was then inserted, and the vesicouterine peritoneum identified, grasped with pickups, and entered sharply with Metzenbaum scissors. This incision was then extended laterally, and the bladder flap created digitally. The bladder blade was then inserted, and the lower uterine segment incision in transverse fashion with the scalpel. The uterine incision was then extended laterally with bandage scissors. The bladder blade was removed, and the 's head delivered atraumatically. The nose and mouth were suctioned and the cord clamped and cut. The infant was handed off to the awaiting devops engineer. Cord gases were sent. Placenta was then removed manually. The uterus exteriorized and cleared of all clot and debris. Uterine incision was repaired with 1-0 chromic in a running, locking fashion. A 2nd layer of the same suture was used to obtain excellent hemostasis. The bladder flap was repaired with 2-0 chromic, and the uterus returned to the abdomen. The gutters were cleared of all clots, and the peritoneum closed with 2-0 chromic. The fascia was reapproximated with 0 Vicryl in a running fashion, and the skin was closed with 4-0 Vicryl in subcuticular fashion. The patient tolerated the procedure well. Sponge, lap, needle counts were correct x2. The patient was taken to the recovery room in stable condition. ISIAH LOOMIS MD RP/[id number]
== END 2020-04-18 12:15 | disposition home or self-care (01) | DRG 788 ==
LOC: JLDR 14:30 → J3W 04-15 08:24
PROVIDERS: ADMIT Obstetrics & Gynecology; ATTEND Obstetrics & Gynecology
PROC: 10D00Z1 Extraction of Products of Conception, Low, Open Approach (ICD-10-PCS; principal; 2020-04-15)
DX: O82 Encounter for cesarean delivery without indication (principal); O62.1 Secondary uterine inertia; O24.420 Gestational diabetes mellitus in childbirth, diet controlled; O36.63X0 Maternal care for excessive fetal growth, third trimester, not applicable or unspecified; O99.214 Obesity complicating childbirth; E66.9 Obesity, unspecified; Z3A.38 38 weeks gestation of pregnancy; Z37.0 Single live birth
CPT/HCPCS: 36415; 80048; 82962; 85025; 85610; 85730; 86780; 86850; 86900; 86901; 87389; 88307-TC; U0003

== ENCOUNTER 2021-09-07 10:00 | Inpatient (IN) | payer OTHER ==
[2021-09-07] MEDS ORDERED: ELECTROLYTE-148 SOLN 500 ML IV ONE (11:00)
[2021-09-07] MEDS ORDERED: CITRIC ACID/SODIUM CITRATE 30 ML UNIT-DOSE CUP PO ONE (11:00)
[2021-09-07 11:07] LABS: BASO % 0.4 % (0-2.0); EOS % 1.5 % (0-4.5); HEMATOCRIT 35.1 % (32.4-45.2); HEMOGLOBIN 12.2 GM/dL (10.7-15.3); LYMPH % 15.1 % (8-40); MCH 28.3 pg (25.7-33.7); MCHC 34.7 g/dl (32.0-36.0); MEAN CELL VOLUME 81.6 fl (80-96); MEAN PLT VOLUME 8.2 fl (7.5-11.1); MONO % 6.2 % (3.8-10.2); NEUT % 76.8 % (42.8-82.8); PLATELET COUNT 183 10^3/uL (134-434); RDW 13.5 % (11.6-15.6); WHITE BLOOD COUNT 7.7 K/mm3 (4.0-10.0)
[2021-09-07] MEDS ORDERED: BUTORPHANOL TARTRATE 1 MG/ML VIAL ONE (11:08)
[2021-09-07 11:19] LABS: ACTIVATED PTT 24.8 SECONDS (25.2-36.5); INR 0.91 (0.83-1.09); PROTHROMBIN TIME (PATIENT) 10.4 SEC (9.7-13.0)
[2021-09-07 11:25] LABS: BLOOD UREA NITROGEN 11.4 mg/dL (7-18); CALCIUM 8.4 mg/dL (8.5-10.1)
[2021-09-07 11:28] LABS: CREATININE 0.5 mg/dL (0.55-1.3)
[2021-09-07] MEDS ORDERED: ONDANSETRON 4 MG/2 ML VIAL IVPUSH PRN (11:47)
[2021-09-07 11:57] VITALS: BMI 35.4
[2021-09-07] MEDS ORDERED: ACETAMINOPHEN INJECTION 100 ML IVPB ONE (12:43)
[2021-09-07] MEDS ORDERED: OXYTOCIN 20 UNITS in 0.9% NS 20 UNIT/1,000 ML INFUS.BAG IV ONE (12:43)
[2021-09-07] MEDS ORDERED: ceFAZolin SODIUM 1 GM VIAL ONE ×2 (12:48→20:28)
[2021-09-07] MEDS ORDERED: OXYTOCIN 10 UNITS/ML VIAL ONE (13:05)
[2021-09-07] MEDS ORDERED: ONDANSETRON 4 MG/2 ML VIAL ONE (13:25)
[2021-09-07] MEDS ORDERED: BUTORPHANOL TARTRATE 1 MG/ML VIAL IVPB ONE (13:45)
[2021-09-07] MEDS ORDERED: SENNOSIDES/DOCUSATE COMBO (SENNA PLUS) TABLET (UD) PO PRN (14:00)
[2021-09-07] MEDS ORDERED: SIMETHICONE 80 MG TAB.CHEW (FP) PO PRN (14:00)
[2021-09-07] MEDS ORDERED: ACETAMINOPHEN 325 MG TABLET (FP) PO PRN (14:00)
[2021-09-07] MEDS ORDERED: oxyCODONE HCL 5 MG TABLET PO PRN (14:00)
[2021-09-07] MEDS ORDERED: ONDANSETRON 4 MG/2 ML VIAL IVPB PRN (14:00)
[2021-09-07] MEDS: ACETAMINOPHEN 1000 MG/100 ML BAG IVPB SCH ×2 (15:00→19:40)
[2021-09-07] MEDS: IBUPROFEN 800 MG/8 ML IJ IVPB SCH (16:30)
[2021-09-07] MEDS ORDERED: DEXTROSE 5%-WATER - 50 ML IVPB ONE (20:28)
[2021-09-07] MEDS: CEFAZOLIN 1 GM in DEXTROSE 5%-WATER - 50 ML IVPB SCH (21:30)
[2021-09-08] MEDS: IBUPROFEN 800 MG/8 ML IJ IVPB SCH (00:11)
[2021-09-08] MEDS: OXYTOCIN 20 UNITS in 0.9% NS 20 UNIT/1,000 ML INFUS.BAG IV SCH ×2 (02:34→20:19)
[2021-09-08] MEDS ORDERED: DEXTROSE 5%-WATER - 50 ML IVPB ONE (05:15)
[2021-09-08] MEDS ORDERED: ceFAZolin SODIUM 1 GM VIAL ONE (05:15)
[2021-09-08] MEDS: CEFAZOLIN 1 GM in DEXTROSE 5%-WATER - 50 ML IVPB SCH (05:49)
[2021-09-08 09:29] LABS: BASO % 0.5 % (0-2.0); EOS % 0.2 % (0-4.5); HEMOGLOBIN 11.3 GM/dL (10.7-15.3); LYMPH % 14.9 % (8-40); MCH 28.7 pg (25.7-33.7); MCHC 34.3 g/dl (32.0-36.0); MEAN CELL VOLUME 83.5 fl (80-96); MEAN PLT VOLUME 8.6 fl (7.5-11.1); MONO % 8.3 % (3.8-10.2); NEUT % 76.1 % (42.8-82.8); PLATELET COUNT 180 10^3/uL (134-434); RBC 3.95 M/mm3 (3.60-5.2); RDW 13.9 % (11.6-15.6)
[2021-09-08] MEDS: IBUPROFEN 600 MG TABLET (FP) PO PRN ×2 (10:02→18:28)
[2021-09-08] MEDS: PRENATAL VITAMINS W/ FOLIC ACID TABLET (FP) PO SCH (10:02)
[2021-09-08] MEDS ORDERED: BISACODYL 10 MG SUPP.RECT RC PRN (14:00)
[2021-09-09] MEDS: PRENATAL VITAMINS W/ FOLIC ACID TABLET (FP) PO SCH (09:10)
[2021-09-09] MEDS: IBUPROFEN 600 MG TABLET (FP) PO PRN (09:10)
[2021-09-09 12:37] VITALS: BP 133/84; PULSE 100; TEMP 97.6
== END 2021-09-09 14:55 | disposition home or self-care (01) | DRG 540 ==
LOC: JLDR 10:00 → J3W 15:15
PROVIDERS: ADMIT Specialist; ATTEND Specialist
PROC: 10D00Z1 Extraction of Products of Conception, Low, Open Approach (ICD-10-PCS; principal; 2021-09-07)
DX: O34.219 Maternal care for unspecified type scar from previous cesarean delivery (principal); Z37.0 Single live birth; Z3A.37 37 weeks gestation of pregnancy
CPT/HCPCS: 36415; 80048; 85025; 85610; 85730; 86780; 86850; 86900; 86901; 88304-TC; 88307-TC; C9803; U0003; U0005